=== PATIENT | female | born 1930 | race Caucasian/White ===

== ENCOUNTER → 2016-09-16 | Outpatient (CLI) | payer MEDICARE, MEDICAID ==
[~2016-09-16] MED LIST: AC325T PO; ACET325T38 PO; ACET650S15 PR; ALBU5SOL10 IH; BENZ100C18 PO; BUDE10.2 IH; CARV3.12 PO; CARV3.12T PO; CARV6.25 PO; CEFU500T5 PO; CRV6.25T PO; DEXT15LI29 PO; DOXY100C2 PO; ENAL2.5T PO; ENLP2.5T PO; FEXO-14 PO; FURO20TA4 PO; FURO40TA4 PO; GABA-490 PO; GABA800T2 PO; GUAI100S4 PO; GUAI600T43 PO; HYDR-2856 PO; IPRA3AMP IH; IPRA3AMP11 INH; ISOS30TA3 PO; LEVO125T6 PO; LEVO137T2 PO; LEVO500T80 PO; LOPE2TAB34 PO; MULT-35 PO; MULT1CAP27 PO; NITR0.4T SL; OMEP20CA12 PO; ONDA8TAB9 PO; POLY17PO6 PO; POTA10CA43 PO; POTA10TA10 PO; PRAM0.252 PO; PRAM0.5T2 PO; PRD20T PO; RNT150T PO; SCR1T1 PO; TRAM50TA2 PO; TRM50T PO; WARF-47 PO; WARF3TAB PO; WRF2.5T PO
--- OUTSIDE RECORDS SUMMARY | 2016-09-16 20:18 | XMS REPORT | Continuity of Care Document ---
Author Author [facility] Organization [facility] Address Unknown Phone Unavailable Care Team Providers Care Data Collection Specialist Name Role Phone DEENA SOLITARIO MD PCP Insurance Providers Payer Name Policy Number Subscriber Name Relationship [employer] Medicare [id number] Ciara Louise 18 Self / Same As Patient [facility] Amer[employer] [id number] Ciara Louise 18 Self / Same As Patient Advance Directives Directive Response Recorded Date/Time Advance Directives No 01/22/16 8:12am Health Care Power of Take Up Operator Yes 01/22/16 8:12am Organ Donor No 01/22/16 8:12am Resuscitation Status Full Code 01/22/16 8:12am Problems No problem information available. Medications Current Home Medications Medication Dose Units Route Directions Days/Qty Instructions Start Date Fexofenadine Hcl 60 Mg 60 Mg Oral Twice A Day 01/19/12 Ranitidine Hcl 150 Mg 150 Mg Oral Twice A Day 01/19/12 Gabapentin 400 Mg 400 Mg Oral Three Times A Day 01/22/16 Levothyroxine Sodium 137 Mcg 137 Mcg Oral Daily 01/22/16 Multivitamin 1 Each 1 Tab Oral Daily 01/22/16 Potassium Chloride 10 Meq 10 Meq Oral Daily 01/22/16 Furosemide (Lasix) 40 Mg 40 Mg Oral Daily 01/22/16 Isosorbide Mononitrate (Imdur) 30 Mg 30 Mg Oral Daily 01/22/16 Polyethylene Glycol 3350 17 Gm 17 Gm Oral Daily 01/22/16 Pramipexole Di-Hcl 0.5 Mg 0.5 Mg Oral Bedtime 01/22/16 Omeprazole 20 Mg 20 Mg Oral Daily 01/22/16 Carvedilol 6.25 Mg 6.25 Mg Oral Twice A Day 01/22/16 Guaifenesin 600 Mg 600 Mg Oral Twice A Day 01/22/16 Budesonide/Formoterol Fumarate 10.2 Gm 2 Puff Inhalation Twice A Day 01/22/16 Ipratropium/Albuterol Sulfate (Duoneb) 3 Ml 3 Ml Inhalation Four Times Daily 01/22/16 Warfarin Sodium 3 Mg 3 Mg Oral Every Wednesday And Wednesday01/22/16 Warfarin Sodium 2 Mg 2 Mg Oral Every Wednesday, Wednesday, Wednesday, , And Wednesday01/22/16 Acetaminophen 325 Mg 650 Mg Oral Every 6 Hours as needed for Pain TAKES 2 (325MG) TABLETS 01/22/16 Ipratropium/Albuterol Sulfate (Duoneb) 3 Ml 3 Ml Inhalation Every 4HRS as needed for Shortness Of Breath 01/22/16 Loperamide Hcl 2 Mg 2 Mg Oral As Directed as needed for Diarrhea GIVE 2 TABLETS AFTER FIRST EPIODSE OF DIARRHEA, THEN GIVE 1 TABLET AFTER EACH EPISODE NOT TO EXCEED 8 TABLETS IN 24 HOURS 01/22/16 Nitroglycerin 0.4 Mg 0.4 Mg Sublingual As Directed as needed for Chest Pain 01/22/16 Tramadol Hcl 50 Mg 50 Mg Oral Every 6 Hours as needed for Moderate Pain 01/22/16 Dextromethorphan Hbr 15 Mg/5 Ml 10 Ml Oral Every 4HRS as needed for Cough 01/22/16 Ondansetron 8 Mg 4 Mg Oral Every 8HRS as needed for Nausea/Vomiting TAKES 1/2 (8MG) TABLET 01/22/16 Levofloxacin 500 Mg 500 Mg Oral Daily 5 01/22/16 Past Home Medications Medication Directions Ordered Status Carvedilol 6.25 Mg Tablet, 1 Each Oral Twice A Day 01/19/12 Discontinued Enalapril Maleate 2.5 Mg Tablet, 2.5 Mg Oral Daily 01/19/12 Discontinued Gabapentin 800 Mg Tablet, 0.5 Each Oral Three Times A Day 01/19/12 Discontinued Levothyroxine Sodium (Levothroid) 125 Mcg Tablet, 1 Each Oral Daily 01/19/12 Discontinued Acetaminophen 325 Mg Tablet, 650 Mg Oral Every 6 Hours as needed for Mild To Moderate Pain 01/19/12 Discontinued Pramipexole Di-Hcl 0.25 Mg Tablet, 0.25 Mg Oral Bedtime 01/19/12 Discontinued Multivitamins 1 Each Capsule, 1 Each Oral Daily 01/19/12 Discontinued Albuterol Sulfate 5 Mg/Ml Solution, 5 Mg Inhalation Four Times Daily Discontinued Guaifenesin 100 Mg/5 Ml Syrup, 100 Mg Oral As Needed 01/19/12 Discontinued Hydroxyzine Hcl 25 Mg Tablet, 1 Each Oral Three Times A Day 01/19/12 Discontinued Acetaminophen 325 Mg Tablet, 325 Mg Oral As Needed 01/19/12 Discontinued Tramadol Hcl 50 Mg Tab, 50 Mg Oral Three Times A Day And Prn 01/19/12 Discontinued Warfarin Sodium 2.5 Mg Tab, 2.5 Mg Oral Daily@18 01/19/12 Discontinued Potassium Chloride (Micro K) 10 Meq Capsule.sa, 1 Each Oral Daily With Food 08/06/12 Discontinued Furosemide (Lasix) 20 Mg Tablet, 1 Each Oral Daily 08/06/12 Discontinued Benzonatate 100 Mg Capsule, 100 Mg Oral Every 8HRS as needed for Cough Discontinued Sucralfate 1 Gm Tab, 1 Gm Oral Before Meals And At Bedtime 08/06/12 Discontinued Prednisone 20 Mg Tab, 20 Mg Oral Daily 08/06/12 Discontinued Doxycycline Hyclate (Vibramycin) 100 Mg Capsule, 1 Each Oral Twice A Day 05/09 Discontinued Acetaminophen 650 Mg Supp.rect, 650 Mg Rectal Q6hr Prn as needed for Mild To Moderate Pain 04/20/14 Discontinued Acetaminophen 650 Mg Supp.rect, 650 Mg Rectal Q6hr Prn 04/20/14 Discontinued Carvedilol 3.125 Mg Tablet, 3.125 Mg Oral Twice A Day 04/20/14 Discontinued Carvedilol 3.125 Mg Tablet, 3.125 Mg Oral Twice A Day 04/20/14 Discontinued Enalapril Maleate 2.5 Mg Tab, 2.5 Mg Oral Daily 04/20/14 Discontinued Carvedilol 6.25 Mg Tab, 6.25 Mg Oral Twice A Day 04/20/14 Discontinued Albuterol/Ipratropium 3 Ml Nebu, 3 Ml Inhalation Respiratory Four Times A Day 04/20/14 Discontinued Cefuroxime Axetil (Ceftin) 500 Mg Tablet, 1 Each Oral Twice A Day 04/20/14 Discontinued Social History Social History Problem Response Recorded Date/Time Alcohol Use Denies Use 04/16/2014 1:06am Recreational Drug Use No 04/16/2014 1:06am Recent Foreign Travel No 04/16/2014 1:06am Recent Infectious Disease Exposure No 04/16/2014 1:06am Hospitalization with Isolation Denies 04/20/2014 1:35pm Sexually Transmitted Disease No 04/16/2014 1:06am HIV/AIDS No 04/16/2014 1:06am Smoking Status Never a Smoker 01/22/2016 8:13am Query Response Start Date Stop Date Smoking Status Never a Smoker Hospital Discharge Instructions No hospital discharge instructions. Plan of Care Discharge Date 01/22/16 3:15pm Instructions/Education Provided PACEMAKER/ICD DISCHARGE INST Prescriptions See Medication Section Functional Status Query Response Date Recorded Patient Orientation Person Place Time Situation January 22, 2016 7:01pm Allergies, Adverse Reactions, Alerts Allergen Type Severity Reaction Status Last Updated Penicillins ([id number]) Allergy Unknown HIVES, HAS HAD ROCEPHIN W/O PROBLEM Active 11/08/08 Sulfa (Sulfonamide Antibiotics) ([id number]) Allergy Unknown HIVES Active 11/08/08 Aspirin Allergy Unknown Active 11/17/07 Immunizations Name Given Type Date of Pneumonia Vaccine 06/19/14 Historical Date of Influenza Vaccine 06/16/13 Historical Hepatitis A No Historical Hepatitis B No Historical Tetanus Booster (TDap) Unknown Historical Vital Signs Acute Vital Signs Vital Response Date/Time Temperature (Fahrenheit) 96.0 degrees F (97.6 - 99.5) 01/22/2016 3:15pm Temperature (Calculated Celsius) 35.07347 degrees C (36.4 - 37.5) 01/22/2016 12:30pm Temperature Source Tympanic 01/22/2016 3:15pm Pulse Rate (adult) 72 bpm (60 - 90) 01/22/2016 3:15pm Respiratory Rate 12 bpm (12 - 24) 01/22/2016 3:15pm O2 Sat by Pulse Oximetry 98 % (88 - 100) 01/22/2016 3:15pm Blood Pressure 122/73 mm Hg 01/22/2016 3:15pm Blood Pressure Mean 89 mm Hg 01/22/2016 3:15pm Blood Pressure 122/73 mm Hg 01/22/2016 3:15pm Pain Pain Intensity 0 01/22/2016 3:15pm Height (Feet) 5 feet 01/22/2016 8:12am Height (Inches) 1.00 inches 01/22/2016 8:12am Height (Calculated Centimeters) 154.796454 cm 01/22/2016 8:12am Weight (Pounds) 214 pounds 01/22/2016 8:12am Weight (Ounces) 0.0 oz 01/22/2016 8:12am Weight (Calculated Grams) 86926.768 gm 01/22/2016 8:12am Weight (Calculated Kilograms) 97.607324 kilograms 01/22/2016 8:12am Calculated BMI 40.4 01/22/2016 8:12am Results Pending Laboratory Results Test Name Collection Date/Time Procedures Procedure Status Date Provider(s) Replacement of pacemaker generator Active 01/22/16 CANDICE CLARK MD Color Doppler echocardiography Active 01/16/16 GAYLE CRUMP Tracing only of electrocardiogram Completed 01/22/16 CANDICE CLARK MD Encounters Encounter Location Arrival/Admit Date Discharge/Depart Date Attending Provider Departed [facility] 01/22/16 7:58am 3:15pm CANDICE CLARK MD Registered Clinic [facility] 01/16/16 2:28pm GAYLE ARIAS
[2016-09-16 20:23] LABS: BILIRUBIN,URINE NEGATIVE (NEGATIVE); KETONES,URINE NEGATIVE (NEGATIVE); LEUKOCYTE ESTERASE ,URINE 3+ (NEGATIVE); NITRITE,URINE POSITIVE (NEGATIVE); PH,URINE 9 (5-9); PROTEIN,URINE 2+ (NEGATIVE); UROBILINOGEN,URINE NORMAL (NORMAL)
[2016-09-16 20:32] LABS: TRIPLE PHOSPHATE CRYSTAL,UR MODERATE /LPF; WBC,URINE 25-50 /HPF
== END ==
PROVIDERS: ATTEND Family Medicine
DX: Z87.440 Personal history of urinary (tract) infections (principal); R82.99 Other abnormal findings in urine
CPT/HCPCS: 81000; 87077; 87088; 87186

== ENCOUNTER → 2016-11-07 | Outpatient (CLI) | payer MEDICARE, MEDICAID ==
--- OUTSIDE RECORDS SUMMARY | 2016-11-07 14:31 | XMS REPORT | Continuity of Care Document ---
Author Author [facility] Organization [facility] Address Unknown Phone Unavailable Care Team Providers Care Field Adjuster Name Role Phone DEENA SOLITARIO MD PCP Insurance Providers Payer Name Policy Number Subscriber Name Relationship [employer] [id number] Ciara Louise 18 Self / Same As Patient [facility] [employer]p [id number] Ciara Louise 18 Self / Same As Patient Advance Directives Directive Response Recorded Date/Time Advance Directives No 01/22/16 8:12am Health Care Power of Cloud Administrator Yes 01/22/16 8:12am Organ Donor No 01/22/16 [...] Type Severity Reaction Status Last Updated Penicillins ([id number]) Allergy Unknown HIVES, HAS HAD ROCEPHIN W/O PROBLEM Active 11/08/08 Sulfa (Sulfonamide Antibiotics) ([id number]) Allergy Unknown HIVES Active 11/08/08 Aspirin Allergy Unknown Active 11/17/07 Immunizations Name Given Type Date of Pneumonia Vaccine 06/19/14 Historical Date of Influenza Vaccine 06/16/13 Historical Hepatitis A No Historical Hepatitis B No Historical Tetanus Booster (TDap) Unknown Historical Vital Signs Acute Vital Signs Vital Response Date/Time Temperature (Fahrenheit) 96.0 degrees F (97.6 - 99.5) 01/22/2016 3:15pm Temperature (Calculated Celsius) 35.62144 degrees C (36.4 - 37.5) 01/22/2016 12:30pm [...] 1.00 inches 01/22/2016 8:12am Height (Calculated Centimeters) 154.451616 cm 01/22/2016 8:12am Weight (Pounds) 214 pounds 01/22/2016 8:12am Weight (Ounces) 0.0 oz 01/22/2016 8:12am Weight (Calculated Grams) 46176.768 gm 01/22/2016 8:12am Weight (Calculated Kilograms) 97.962587 kilograms 01/22/2016 8:12am Calculated BMI 40.4 01/22/2016 8:12am Results Pending Laboratory Results Test Name Collection Date/Time Procedures Procedure Status Date Provider(s) Replacement of pacemaker generator Active 01/22/16 CANDICE CLARK MD Color Doppler echocardiography Active 01/16/16 GAYLE CRUMP Tracing only of electrocardiogram Completed 01/22/16 CANDICE CLARK MD Encounters Encounter Location Arrival/Admit Date Discharge/Depart Date Attending Provider Departed [facility] 01/22/16 7:58am 3:15pm CANDIEC CLARK MD Registered Clinic [facility] 01/16/16 2:28pm GAYLE ARIAS
== END ==
PROVIDERS: ATTEND Family Medicine
DX: Z51.81 Encounter for therapeutic drug level monitoring (principal); Z79.01 Long term (current) use of anticoagulants
CPT/HCPCS: 85610